=== PATIENT | female | born 1955 | race Caucasian/White ===

== ENCOUNTER 2016-10-09 11:50 | Emergency (ER) | payer BC ==
[2016-10-09 12:38] VITALS: BP 157/86
--- NOTE | 2016-10-09 13:24 | UC ---
Respiratory Complaint HPI - HPI Summary HPI Summary: cough for two weeks. she denies fever. with cough she will get chest pain and sob. no cp or sob without coughing episodes. she has had coughing in the past and has needed inhaler and steroids. she is a smoker. no prior cardiac or lung hx that she know of. Younger sister has had asthma. - History of Current Complaint Chief Complaint: UCChestPain Stated Complaint: COUGH,CHEST CONGESTION,EAR PAIN Time Seen by Provider: 10/09/16 12:58 Hx Obtained From: Patient Hx Last Menstrual Period: no ?: No Onset/Duration: Gradual Onset, Lasting Weeks Timing: Constant Severity Initially: Moderate Severity Currently: Moderate Character: Cough: Nonproductive Associated Signs And Symptoms: Positive: URI, Nasal Congestion, Hoarseness. Negative: Fever, Pleuritic Chest Pain, Calf Pain, Calf Swelling, Edema - Risk Factors Pulmonary Embolism Risk Factors: Smoking Cardiac Risk Factors: Negative Pseudomonas Risk Factors: Negative Tuberculosis Risk Factors: Negative - Allergies/Home Medications Allergies/Adverse Reactions: Allergies Allergy/AdvReac Type Severity Reaction Status Date / Time Bee Venom Allergy Swelling Verified 10/09/16 12:32 PMH/Surg Hx/FS Hx/Imm Hx Previously Healthy: Yes Endocrine History Of: Denies: Diabetes, Thyroid Disease, Hyperthyroidism, Hypothyroidism, Dyslipidemia Cardiovascular History Of: Denies: Cardiac Disorders, Hypertension, Pacemaker/ICD, Myocardial Infarction , Congestive Heart Failure, Atrial Fibrillation, Deep Vein Thrombosis, Bleeding Disorders Respiratory History Of: Denies: COPD, Asthma, Bronchitis, Pneumonia, Pulmonary Embolism GI/ History Of: Denies: Gastroesophageal Reflux, Ulcer, Gastrointestinal Bleed, Gall Bladder Disease, Kidney Stones, Diverticulitis, Renal Disease, Urosepsis Neurological History Of: Denies: TIA, CVA, Dementia, Seizures, Migraine Psychological History Of: Denies: Anxiety, Depression, Bipolar Disorder, Schizophrenia, Post Traumatic Stress Disorder Cancer History Of: Denies: Lung Cancer, Colorectal Cancer, Breast Cancer, Prostate Cancer, Cervical Cancer - Surgical History Surgical History: Yes Surgery Procedure, Year, and Place: Hysterectomy, 1977, ; C-Sections, 1974 1976, - Family History Known Family History: Positive: Hypertension, Diabetes, Respiratory Disease - sister has hx of asthma. - Social History Occupation: Employed Part-time - [employer]. Alcohol Use: None Substance Use Type: None Smoking Status (MU): Heavy Every Day Tobacco Smoker Type: Cigarettes Amount Used/How Often: 1/2 PPD Length of Time of Smoking/Using Tobacco: Since age 18 Have You Smoked in the Last Year: Yes Household Exposure Type: Cigarettes - Immunization History Most Recent Influenza Vaccination: Not the Season Review of Systems All Other Systems Reviewed And Are Negative: Yes Physical Exam Triage Information Reviewed: Yes Appearance: Well-Appearing, No Pain Distress, Well-Nourished Vital Signs: Initial Vital Signs Temp 99.8 F 10/09/16 12:33 Pulse 90 10/09/16 12:33 Resp 16 10/09/16 12:33 BP 157/86 10/09/16 12:33 Pulse Ox 99 10/09/16 12:33 Vital Signs Reviewed: Yes Eye Exam: Normal Eyes: Positive: Conjunctiva Clear. Negative: Conjunctiva Inflamed ENT Exam: Normal ENT: Positive: Normal ENT inspection, Hearing grossly normal, Pharynx normal. Negative: Pharyngeal erythema, Nasal congestion, Nasal drainage, TMs normal, TM bulging, TM dull, TM red, Tonsillar swelling, Tonsillar exudate, Trismus, Muffled/hoarse voice Neck exam: Normal Neck: Positive: Supple, Nontender, No Lymphadenopathy. Negative: Nuchal Rigidity, Tenderness @, Enlarged Nodes @ Respiratory Exam: Other - she is breathing comfortably and talking in full sentences. diminished symmetrically at the bases. Respiratory: Positive: Chest non-tender, Lungs clear, No respiratory distress, No accessory muscle use. Negative: Crackles, Rhonchi, Stridor Cardiovascular Exam: Normal Cardiovascular: Positive: RRR, No Murmur, Pulses Normal Abdominal Exam: Normal Abdomen Description: Positive: Nontender, No Organomegaly, Soft Bowel Sounds: Positive: Present Musculoskeletal Exam: Normal Musculoskeletal: Positive: Strength Intact, ROM Intact Neurological Exam: Normal Neurological: Positive: Alert, Muscle Tone Normal Psychological Exam: Normal Skin Exam: Normal Skin: Negative: rashes UC Diagnostic Evaluation - Laboratory O2 Sat by Pulse Oximetry: 99 - EKG Cardiac Rate: NL Cardiac Rhythm: Sinus: Normal Ectopy: None ST Segment: Normal - computur reads as ST elevation inferior leads but I do not agree. Respiratory Course/Dx - Course Course Of Treatment: cough for two weeks but no signs of pneumonia or respiratory distress. she appears quite well and no ill appearing. she is a smoker and I believe this is c/w bronchitis and possible copd as of now undiagnosed. we have considered cardiac etiology, PE, pneumothorax but this is not c/w clinical picture. she statesa this is similar to prior episodes that improved with prednisone but the course was 4 days and she states she would get sick again with the same symptoms. she was encouraged to get a doctor for physicals for routine health maintainance. - Differential Dx/Diagnosis Differential Diagnosis/HQI/PQRI: Airway Obstruction, Foreign Body, Aspiration, Asthma, Bronchitis, CHF, Pulmonary Edema, Exacerbation Of COPD, Influenza, Laryngitis, Lower Resp Infection, MRSA, Pneumothorax, Pulmonary Embolism, Tuberculosis Provider Diagnoses: acute bronchitis. Discharge - Discharge Plan Condition: Good Disposition: HOME Prescriptions: Azithromyxin SUSAN (NF) [Z-Susan (Zithromax) 250 mg tabs #6] 2 tab PO .TODAY, THEN 1 DAILY #6 tab Benzonatate CAP* [Tessalon 100 MG CAP*] 100 mg PO TID PRN #30 cap PRN Reason: Cough predniSONE TAB* [Deltasone TAB*] 20 mg PO DAILY #20 tab Patient Education Materials: Acute Bronchitis (ED) Referrals: [facility] [place] [facility]FERR[facility] [Outside] No Primary Care Phys,NOPCP [Primary Care Provider] -
== END 2016-10-09 13:39 | disposition home or self-care (01) ==
LOC: UCCORT 11:50
DX: J20.9 Acute bronchitis, unspecified (principal); R07.9 Chest pain, unspecified; F17.210 Nicotine dependence, cigarettes, uncomplicated
CPT/HCPCS: 93005; 99212; G0463

== ENCOUNTER 2017-04-30 12:35 | Emergency (ER) | payer BC ==
[2017-04-30 13:12] VITALS: BP 164/98
--- NOTE | 2017-04-30 13:24 | UC ---
Respiratory Complaint HPI - HPI Summary HPI Summary: 61 y/o female presents to the urgent care c/o SOB, productive cough, chest congestion for the past week. Pt reports it started with nasal congestion, but now she is producing a green phlegm with SOB and wheezing. Pt is a smoker since age 18. Pt states subjective fever at home, specially at night she feels hot. Pt denies chest pain, N/V/D, abdominal pain. She hasn't been at her PCP for the past 2 years. Pt was here for similar symptoms in 09/2016 symptoms improved with inhaler and Prednisone. - History of Current Complaint Chief Complaint: UCRespiratory Stated Complaint: COUGH SINUS CONGESTION Time Seen by Provider: 04/30/17 13:03 Hx Obtained From: Patient Hx Last Menstrual Period: age 22yrs ?: No Onset/Duration: Gradual Onset, Lasting Weeks - 1 week Timing: Constant Severity Initially: Mild Severity Currently: Moderate Pain Intensity: 0 Pain Scale Used: 0-10 Numeric Character: Cough: Productive, Sputum Description: - green Aggravating Factors: Deep Breaths, Other - smoking Alleviating Factors: Nothing Associated Signs And Symptoms: Positive: Dyspnea, Fever - subjective at home, Wheezing, Nasal Congestion. Negative: Dizziness - Risk Factors Pulmonary Embolism Risk Factors: Negative Cardiac Risk Factors: Negative Pseudomonas Risk Factors: Negative Tuberculosis Risk Factors: Negative - Allergies/Home Medications Allergies/Adverse Reactions: Allergies Allergy/AdvReac Type Severity Reaction Status Date / Time Bee Venom Allergy Swelling Verified 04/30/17 13:12 PMH/Surg Hx/FS Hx/Imm Hx Previously Healthy: Yes - Pt denies PMHX - Surgical History Surgical History: Yes Surgery Procedure, Year, and Place: Hysterectomy, 1977, [place]; C-Sections, 1974 1976, [place] - Family History Known Family History: Positive: Hypertension, Diabetes, Respiratory Disease - sister has hx of asthma. - Social History Occupation: Employed Full-time Lives: With Family Alcohol Use: None Substance Use Type: None Smoking Status (MU): Heavy Every Day Tobacco Smoker Type: Cigarettes Amount Used/How Often: 1/2 PPD Length of Time of Smoking/Using Tobacco: Since age 18 Have You Smoked in the Last Year: Yes Household Exposure Type: Cigarettes - Immunization History Most Recent Influenza Vaccination: Not the 2015/2016 Season Review of Systems Constitutional: Fever - subjective fever at home Skin: Negative Eyes: Negative ENT: Sinus Congestion Respiratory: Shortness Of Breath, Cough - productive with green sputum Gastrointestinal: Negative Genitourinary: Negative Motor: Negative Neurovascular: Negative Musculoskeletal: Negative Neurological: Negative Psychological: Negative Is Patient Immunocompromised?: No All Other Systems Reviewed And Are Negative: Yes Physical Exam Triage Information Reviewed: Yes Vital Signs: Initial Vital Signs Temp 98.1 F 04/30/17 13:02 Pulse 70 04/30/17 13:02 Resp 20 04/30/17 13:02 BP 164/98 04/30/17 13:02 Pulse Ox 95 04/30/17 13:02 - Additional Comments Vital Signs Reviewed: Yes General: well appearing, well nourish female w/o any apparent distress sitting comfortably on the examining table Eyes: Positive: Conjunctiva Clear - PERRLA, EOMI, fundi grossly normal ENT: Positive: Normal ENT inspection, Hearing grossly normal, Pharynx normal, Nasal congestion - edematous and erythematous nasal mucosa, Nasal drainage - yellowish drainage, TMs normal. Negative: Tonsillar swelling, Tonsillar exudate Neck: Positive: Supple, Nontender, No Lymphadenopathy Respiratory: no orthopnea or dyspnea. Able to speak in full sentences, no retractions or accessory muscle use, no tripod position, stridor, or head bobbing. moderate wheezing in the B/L upper posterior lungs , no rhonchi, rales. Cardiovascular: Positive: RRR, No Murmur, Pulses Normal, Brisk Capillary Refill Abdomen Description: Positive: Nontender, No Organomegaly, Soft. Negative: CVA Tenderness (R), CVA Tenderness (L) Bowel Sounds: Positive: Present Musculoskeletal Exam: Normal Musculoskeletal: Positive: Strength Intact, ROM Intact, No Edema Neurological Exam: Normal Psychological Exam: Normal Skin Exam: Normal UC Diagnostic Evaluation - Laboratory O2 Sat by Pulse Oximetry: 95 Respiratory Course/Dx - Course Course Of Treatment: 61 y/o female presents to the urgent care c/o SOB, productive cough, chest congestion for the past week. Pt reports it started with nasal congestion, but now she is producing a green phlegm with SOB and wheezing. Pt is a smoker since age 18. Pt states subjective fever at home, specially at night she feels hot. Pt denies chest pain, N/V/D, abdominal pain. She hasn't been at her PCP for the past 2 years.HX obtained. Chest X-ray ordered to r/o pneumonia. Impression: No active Cardiopulmonary disease observed. Pt with scattered wheezing on both lungs. O2sat: 95% Pt is a heavy smoker. Prednisone 60 mg PO ordered and [place] treatment ordered. Pt tolerated well medications and her lungs improved. Pt states feeling better. Pt will be tX for Acute Bronchitis, Rx Doxycyclline PO , Prednisone taper dose and Inhaler. Strongly advised to f/u with her PCP for further managment. She may be developing COPD. She also has elevated BP today, advised to decrease salt in her diet and monitor BP, if it continues to be elevated to f/u with her PCP. Pt understood and agreed with D/C instructions and left the clinic hemodynamically stable. - Differential Dx/Diagnosis Differential Diagnosis/HQI/PQRI: Asthma, Bronchitis, Exacerbation Of COPD, Lower Resp Infection, Sinusitis Provider Diagnoses: 1- Acute bronchitis. 2- Elevated BP w/o Hx of HTN Discharge - Discharge Plan Condition: Stable Disposition: HOME Prescriptions: Albuterol/Ipratropium RESP(NF) [Combivent Respimat (NF)] 1 aer IN TID #1 aer Benzonatate CAP* [Tessalon 100 MG CAP*] 100 mg PO TID #21 cap DOXYcycline CAP(*) [DOXYcycline 100MG CAP(*)] 100 mg PO BID #20 cap predniSONE TAB* [Deltasone TAB*] 20 mg PO DAILY #8 tab Patient Education Materials: Acute Bronchitis (ED), COPD (Chronic Obstructive Pulmonary Disease) (ED), Low Sodium Diet (ED) Referrals: [facility] [place] [facility] [Outside] - 1 Week Additional Instructions: 1-Please take full course of antibiotic to avoid resistance. 2-Take Tessalon PO tabs as directed and use the inhaler to alleviate cough. Increase fluid intake, rest and eat well. 3- If symptoms do not improve or worsen or your develop SOB with fever and severe wheezing please go immediately to the ER further evaluation and treatment. 4- F/u with your PCP in 1 weeks for further management may be you are developing COPD since you have been smoking for many years 5- You BP is elevated today please monitor your BP at home, decrease salt in your diet and f/u with your PCP for further management.
[2017-04-30] MEDS ORDERED: predniSONE TAB* 20 MG PO ONE (13:25)
[2017-04-30] MEDS ORDERED: Albuterol/Ipratropium NEB.SOL* Albuterol 2.5 MG/Ipratropium 0.5 MG 3 ML INH ONE (13:26)
--- NOTE | 2017-04-30 13:47 | RAD ---
INDICATION: Short of breath COMPARISON: None TECHNIQUE: PA and lateral dual-energy views were obtained. FINDINGS: Bones/Soft Tissues: There are no acute bony findings. Cardiomediastinal: The cardiomediastinal silhouette is normal. Lungs: There are no infiltrates. Pleura: There are no pleural effusions. Other: None IMPRESSION: NO ACTIVE DISEASE
== END 2017-04-30 14:11 | disposition home or self-care (01) ==
LOC: UCCORT 12:35
DX: J20.9 Acute bronchitis, unspecified (principal); R03.0 Elevated blood-pressure reading, without diagnosis of hypertension; Z91.030 Bee allergy status; F17.210 Nicotine dependence, cigarettes, uncomplicated
CPT/HCPCS: 71020; 99212; A9270-GY; G0463; J7512